=== PATIENT | female | born 1980 | race Caucasian/White ===

== ENCOUNTER 2020-07-19 11:03 | Day surgery (SDC) | payer BC ==
[~2020-07-19] VITALS: Ht 175.3 cm; Wt 87.5 kg
[2020-07-19 11:20] VITALS: BP 119/65
[2020-07-19] MEDS ORDERED: normal saline 1000ml 1,000 ML IV PRN (11:50)
[2020-07-19] MEDS ORDERED: NO HOME MEDS (12:07)
[2020-07-19] MEDS ORDERED: fentaNYL/PF 50MCG/1 ML 2ML syringe ONE (13:17)
[2020-07-19] MEDS ORDERED: midazolam 2 mg/2 ml injection ONE (13:17)
[2020-07-19] MEDS ORDERED: heparin 25,000 UNIT/250ml bag 250 ML IV ONE (13:19)
[2020-07-19] MEDS ORDERED: LIDOcaine 1%/PF 5ML 10 MG/ML VIAL ONE (13:19)
[2020-07-19] MEDS ORDERED: heparin sodium, porcine/PF 100unit/ml 5ML syringe ONE (13:20)
[2020-07-19 14:35] VITALS: BP 101/63
[2020-07-19 14:45] VITALS: BP 105/62
[2020-07-19 15:00] VITALS: BP 106/70
[2020-07-19 15:15] VITALS: BP 111/60
[2020-07-19 15:30] VITALS: BP 101/71
== END 2020-07-19 15:55 | disposition home or self-care (01) ==
LOC: SSTAY O 11:03
PROVIDERS: ATTEND Radiology Vascular & Interventional Radiology
DX: C50.412 Malignant neoplasm of upper-outer quadrant of left female breast (principal); Z79.899 Other long term (current) drug therapy; Z80.3 Family history of malignant neoplasm of breast
CPT/HCPCS: 36561; 76937; 77001; 99152; C1769; C1788; C1894; J1642; J1644; J2250; J3010; 99153